=== PATIENT | male | born 1990 | race African-American/Black ===

== ENCOUNTER 2018-06-11 03:29 | Emergency (ER) | payer SELFPAY ==
[2018-06-11] MEDS ORDERED: Dexamethasone 10 MG/ML VIAL ONE (04:02)
[2018-06-11] MEDS ORDERED: Ketorolac Tromethamine 30 MG/ML VIAL ONE (04:02)
== END 2018-06-11 05:00 | disposition home or self-care (01) ==
LOC: ERS 03:29
DX: J02.9 Acute pharyngitis, unspecified (principal); F17.210 Nicotine dependence, cigarettes, uncomplicated
CPT/HCPCS: 87081; 87430; 87804; 96372; J1100; J1885

== ENCOUNTER 2018-10-22 22:43 | Emergency (ER) | payer OTHER, SELFPAY ==
[2018-10-22] MEDS ORDERED: Ketorolac Tromethamine 30 MG/ML VIAL ONE (23:58)
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
== END 2018-10-23 00:51 | disposition home or self-care (01) ==
LOC: ERS 22:43
DX: M54.5 Low back pain (principal); M79.671 Pain in right foot; F17.210 Nicotine dependence, cigarettes, uncomplicated; V89.2XXA Person injured in unspecified motor-vehicle accident, traffic, initial encounter
CPT/HCPCS: 72100; 96372; J1885

== ENCOUNTER 2021-01-20 07:23 | Emergency (ER) | payer SELFPAY, OTHER | END 2021-01-20 08:12 | disposition home or self-care (01) | LOC: ERS 07:23 | DX: R19.7 Diarrhea, unspecified (principal); F17.210 Nicotine dependence, cigarettes, uncomplicated | CPT/HCPCS: 99283 ==

== ENCOUNTER 2021-09-01 18:34 | Emergency (ER) | payer SELFPAY ==
[2021-09-02 11:56] LABS: SARS-CoV-2 PCR by NAA Not Detected (NotDetected)
== END 2021-09-01 22:06 | disposition home or self-care (01) ==
LOC: ERS 18:34
DX: E86.0 Dehydration (principal); R53.83 Other fatigue; R09.89 Other specified symptoms and signs involving the circulatory and respiratory systems; R11.10 Vomiting, unspecified; F17.210 Nicotine dependence, cigarettes, uncomplicated; Z20.822 Contact with and (suspected) exposure to COVID-19
CPT/HCPCS: 36416; 99284; U0003; U0005

== ENCOUNTER 2021-09-30 16:36 | Emergency (ER) | payer SELFPAY ==
[~2021-09-30 16:36] MED LIST: Iopamidol-370 76% 500 ML 1 ML ONE
[2021-09-30 18:38] LABS: #Eosinphils 0.6 thou/uL (0.0-0.7); #Lymphocytes 1.4 thou/uL (1.20-3.40); #Monocytes 0.6 thou/uL (0.11-0.59); #Neutrophils 5.5 thou/uL (1.40-6.50); %Basophils 0.3 % (0.0-1.0); %Eosinophils 7.6 % (0.0-10.0); %Lymphocytes 17.1 % (21.0-51.0); %Monocytes 7.3 % (0.0-10.0); %Neutrophils 67.8 % (42.0-75.0); Hemoglobin 15.9 g/dL (14.0-18.0); Mean Corpuscular HGB CONC 33.5 g/dL (32.0-36.0); Mean Corpuscular Hemoglobin 30.2 pg (27.0-31.0); Mean Corpuscular Volume 89.9 fL (78.0-98.0); Mean Platelet Volume 7.4 fL (7.4-10.4); Platelet Count 228 thou/uL (130-400); Red Blood Cell (RBC) Count 5.27 mill/uL (4.70-6.10)
[2021-09-30 18:52] LABS: ALT (SGPT) 22 U/L (8-55); AST (SGOT) 29 U/L (5-34); Albumin 4.3 g/dL (3.5-5.0); Alkaline Phosphatase 70 U/L (40-110); Anion Gap 14 mmol/L (10-20); BUN (Urea Nitrogen) 9 mg/dL (8.9-20.6); Bilirubin, Total 0.5 mg/dL (0.2-1.2); CK (CPK) 669 U/L (30-200); Calc. Creatinine Clearance 0 mL/min (70-130); Calcium 9.4 mg/dL (7.8-10.44); Carbon Dioxide 23 mmol/L (22-29); Chloride 104 mmol/L (98-107); Globulin 2.5 g/dL (2.4-3.5); Glucose 144 mg/dL (70-105); Potassium 3.6 mmol/L (3.5-5.1); Protein, Total 6.8 g/dL (6.0-8.3); Sodium 137 mmol/L (136-145)
[2021-09-30 19:57] LABS: Bacteria/HPF None Seen HPF (None Seen); Bilirubin Negative (Negative); Blood, Urine Trace (Negative); Clarity Clear (Clear); Glucose, Urine (Dipstick) Normal (Negative); Ketone, Urine Negative (Negative); Leukocyte Negative Leu/uL (Negative); Nitrite Negative (Negative); Protein, Urine (Dipstick) 30 mg/dL (Neg-Trace); RBC/HPF 0-3 HPF (0-3); Specific Gravity, Urine 1.022 (1.002-1.036); Squamous Epithelial 0-3 HPF (0-3); Urobilinogen Normal mg/dL (Less than 2); WBC/HPF 0-3 HPF (0-3)
[2021-09-30 20:45] LABS: Sperm/HPF 1+ HPF (None Seen)
== END 2021-09-30 20:19 | disposition home or self-care (01) ==
LOC: ERS 16:36
DX: T75.4XXA Electrocution, initial encounter (principal); S09.90XA Unspecified injury of head, initial encounter; Z79.899 Other long term (current) drug therapy; F17.210 Nicotine dependence, cigarettes, uncomplicated
CPT/HCPCS: 70496; 70498; 80053; 81003; 81015; 82550; 84484; 85025; 93005; Q9967

== ENCOUNTER 2021-10-30 21:32 | Emergency (ER) | payer SELFPAY | END 2021-10-30 22:10 | LOC: ERS 21:32 | DX: R07.89 Other chest pain (principal); F16.929 Hallucinogen use, unspecified with intoxication, unspecified; F17.210 Nicotine dependence, cigarettes, uncomplicated; Z79.899 Other long term (current) drug therapy | CPT/HCPCS: 99284 ==